=== PATIENT | male | born 1995 | race Caucasian/White ===

== ENCOUNTER 2017-03-17 16:08 | Emergency (ER) | payer BC, OTHER ==
[~2017-03-17] VITALS: Ht 182.9 cm; Wt 81.0 kg
[2017-03-17 16:08] VITALS: Ht 182.9 cm; Wt 81.0 kg
--- NOTE | 2017-03-17 16:26 | EMERGENCY ROOM VISIT NOTE ---
History Report prepared by Asim: José Miguel Villalta Under the Supervision of: Dr. Bala Rodriguez M.D. First contact with patient: 16:18 Chief Complaint: ALCOHOL OVERDOSE Stated Complaint: ETOH, LACERATION TO CHIN History of Present Illness The patient is a 21 year old male who presents to the Emergency Room with an acute alcohol overdose that occurred prior to arrival. Per nursing, the patient was walking through a parking lot when he fell in front of the police. The patient was taken to a first aid station for a chin laceration and some extremity abrasions. The first aid station was full so they brought him to the ED. The patient was placed in a C-collar. He admits to drinking alcohol. He is not diabetic. Complete history is limited secondary to alcohol intoxication. Source of History: patient, nursing staff History Limited By: intoxication Onset: [employer] Position: other (global) Quality: other (alcohol overdose) Timing: other (acute) Review of Systems ROS is limited secondary to alcohol intoxication. Past Medical & Surgical Medical Problems: (1) No known health problems Old medical records were reviewed. Nurse's notes were reviewed and I agree with. Denies other medical problems Family History Patient reports no known family medical history. Social History Alcohol Use: heavy Marital Status: single Occupation Status: [employer] student Current/Historical Medications Unable to Obtain Active Prescriptions or Reported Meds Physical Exam Vital Signs Date Time Temp Pulse Resp B/P Pulse Ox O2 Delivery O2 Flow Rate FiO2 03/17/17 23:00 86 19 130/88 100 03/17/17 23:00 36.6 86 19 130/88 100 03/17/17 22:20 130/89 03/17/17 22:18 86 19 100 03/17/17 22:00 136/88 03/17/17 21:58 128/89 03/17/17 21:21 88 03/17/17 21:21 22 135/82 03/17/17 21:18 96 12 135/82 03/17/17 20:18 94 15 03/17/17 19:48 116 14 03/17/17 19:43 106 14 03/17/17 19:20 135/75 03/17/17 19:13 95 15 100 03/17/17 18:43 87 99 03/17/17 18:38 89 98 03/17/17 18:08 97 16 99 03/17/17 18:00 129/79 03/17/17 17:38 105 17 98 03/17/17 17:27 96 16 125/84 99 Room Air 03/17/17 17:24 125/84 03/17/17 16:52 80 03/17/17 16:08 36.6 91 12 137/73 96 Room Air Physical Exam General: Intoxicated young male, C-collar in place, laying prone on stretcher, smells of alcohol, wakes up to answer questions but falls right back asleep. HEENT: Normal cephalic atraumatic. Pupils are equal round and reactive to light. Extraocular movements are intact. Oropharynx is pink with moist mucous membranes. No swelling of the mouth lips or tongue. Neck: Supple with a midline trachea. No meningeal signs or stiffness, no JVD or bruits. No Stridor. Chest: Clear to auscultation bilaterally. No wheezes or rhonchi. No increased work of breathing. Heart: regular rate and rhythm. Abdomen: Soft nontender, nondistended without rebound guarding or rigidity. Extremities: No cyanosis clubbing or edema. No calf tenderness or assymetry Spine/Back. Non tender to palpation. No CVA tenderness Skin: Good turgor without rashes. Neurologic exam: Cranial nerves two through 12 are intact. Motor and sensation are intact and symmetrical throughout. Medical Decision & Procedures ER Provider Diagnostic Interpretation: CT results as stated below per my review and radiologist interpretation: CT OF THE CERVICAL SPINE CLINICAL HISTORY: Neck pain status post trauma COMPARISON STUDY: No previous studies for comparison. CT DOSE: 1055.60 mGy.cm TECHNIQUE: CT scan of the cervical spine was performed from the skull base to the thoracic inlet. Images are reviewed in the axial, sagittal, and coronal planes. IV contrast was not administered for this examination. FINDINGS: The visualized portions of the lung apices reveal no evidence of pneumothorax. The prevertebral soft tissues are normal. No fractures or subluxations are visualized. IMPRESSION: No evidence of acute fracture or traumatic subluxation. Electronically signed by: Landry Perez M.D. 03/17/2017 5:26 PM Dictated Date/Time: 03/17/2017 5:[address] HEAD WITHOUT CONTRAST (CT) CLINICAL HISTORY: Head pain status post trauma COMPARISON STUDY: No previous studies for comparison. TECHNIQUE: Axial CT of the brain is performed from the vertex to the skull base. IV contrast was not administered for this examination. CT DOSE: FINDINGS: No intra or extra-axial mass lesions are visualized. There is no CT evidence of acute cortical infarction. There is no evidence of midline shift. There is no acute hemorrhage. No calvarial fractures are visualized. There is no evidence of pathologic ventricular dilatation. There is bilateral maxillary sinus mucosal thickening. IMPRESSION: Bilateral maxillary sinus mucosal thickening. Otherwise normal noncontrast head CT. Electronically signed by: Landry Perez M.D. 03/17/2017 5:17 PM Dictated Date/Time: 03/17/2017 5:16 PM Laboratory Results Test 03/17/17 17:21 Ethyl Alcohol mg/dL 346.0 mg/dl (0-3) Laboratory studies as stated above per my review. ED Course 1620: Past medical records reviewed. The patient was evaluated in room A4b, and a complete history and physical examination were performed. 1740: The patient was trying to get out of bed. 2250: The patient has a sober sister here to drive him home. Discussed the discharge instructions with him. He verbalized understanding. The patient is ready for discharge. Medical Decision Differential diagnosis includes alcohol intoxication, traumatic injury, overdose , concussion. This patient comes in as described above. He was placed in room A4. He is here for treatment and evaluation being found intoxicated he fell and from the police and hit his head. He is intoxicated but he does wake up and he does follow commands. Given the fact that he fell I did order CAT scan of his head and neck. Blood alcohol was obtained as well as he was observed in the ER on a monitoring manager and was placed aspiration precautions. CAT scan of his head and neck were unremarkable he is a small chin abrasion he was observed in the ER his blood alcohol came back significantly elevated 346. He was here for several hours while he sobered up his sober sister did arrive and will be taking him home.. He has no further complaints he denies that he was trying to hurt himself or took any drug.s. He has no dental complaints I reexamined his mouth and he has no step off. There is no malocclusion. He is to rest and drink plenty of fluids. Avoid any further alcohol on return if: worsening of symptoms, any new problems or concerns. Impression Primary Impression: Alcohol use with intoxication Additional Impression: Facial contusion Scribe Attestation The scribe's documentation has been prepared under my direction and personally reviewed by me in its entirety. I confirm that the note above accurately reflects all work, treatment, procedures, and medical decision making performed by me. Departure Information Dispostion Home / Self-Care Prescriptions Unable to Obtain Active Prescriptions or Reported Meds Referrals No Doctor, Assigned (PCP) Forms HOME CARE DOCUMENTATION FORM, IMPORTANT VISIT INFORMATION Patient Instructions Alcohol Intoxication - [facility], Pending Sale To [facility] Additional Instructions Rest. Drink plenty of fluids. Do not drinking more alcohol. Return to the ER if: Worsening symptoms, any new problems or concerns. Follow up with her doctor this week Problem Qualifiers
--- NOTE | 2017-03-17 17:19 | DIAGNOSTIC IMAGING REPORT ---
CT HEAD WITHOUT CONTRAST (CT) CLINICAL HISTORY: Head pain status post trauma COMPARISON STUDY: No previous studies for comparison. TECHNIQUE: Axial CT of the brain is performed from the vertex to the skull base. IV contrast was not administered for this examination. CT DOSE: FINDINGS: No intra or extra-axial mass lesions are visualized. There is no CT evidence of acute cortical infarction. There is no evidence of midline shift. There is no acute hemorrhage. No calvarial fractures are visualized. There is no evidence of pathologic ventricular dilatation. There is bilateral maxillary sinus mucosal thickening. IMPRESSION: Bilateral maxillary sinus mucosal thickening. Otherwise normal noncontrast head CT. Electronically signed by: Landry Perez M.D. 03/17/2017 5:17 PM Dictated Date/Time: 03/17/2017 5:16 PM
--- NOTE | 2017-03-17 17:29 | DIAGNOSTIC IMAGING REPORT ---
CT OF THE CERVICAL SPINE CLINICAL HISTORY: Neck pain status post trauma COMPARISON STUDY: No previous studies for comparison. CT DOSE: 1055.60 mGy.cm TECHNIQUE: CT scan of the cervical spine was performed from the skull base to the thoracic inlet. Images are reviewed in the axial, sagittal, and coronal planes. IV contrast was not administered for this examination. FINDINGS: The visualized portions of the lung apices reveal no evidence of pneumothorax. The prevertebral soft tissues are normal. No fractures or subluxations are visualized. IMPRESSION: No evidence of acute fracture or traumatic subluxation. Electronically signed by: Landry Perez M.D. 03/17/2017 5:26 PM Dictated Date/Time: 03/17/2017 5:24 PM
[2017-03-17 23:00] VITALS: BP 130/88; PULSE 86; TEMP 36.6; O2SAT 100
== END 2017-03-17 23:03 | disposition home or self-care (01) ==
LOC: C.EDA 16:10
DX: T51.91XA Toxic effect of unspecified alcohol, accidental (unintentional), initial encounter (principal); S00.83XA Contusion of other part of head, initial encounter; S00.81XA Abrasion of other part of head, initial encounter; W19.XXXA Unspecified fall, initial encounter; Y92.481 Parking lot as the place of occurrence of the external cause